=== PATIENT | female | born 1955 | race Caucasian/White ===

== ENCOUNTER → 2025-04-25 | Day surgery (SDC) | payer MEDICARE ==
[2025-04-19 11:35] LABS: BASOPHILS % 0.3 % (0.0-1.0); EOSINOPHILS % 1.6 % (0.0-6.0); LYMPHOCYTES % 21.5 % (18.0-39.1); MONOCYTES % 7.6 % (4.4-11.3); NEUTROPHILS % 68.7 % (38.7-80.0); RED CELL DISTRIBUTION WIDTH 14.7 % (11.7-14.4)
[~2025-04-25] MED LIST: COREG3.125 MG PO; DEXAMETHASONE SOD PHOS INJ 4 MG/ML SDV ONE; EPHEDRINE SULFATE INJ 50 MG/ML VIAL ONE; FAMOTIDINE 20 MG/2 ML VIAL IV ONE; FENTANYL CITRATE/PF 100MCG/2 ML INJ ONE; GABAPENTIN100 MG PO; LACTATED RINGER'S 1,000 ML ONE; LIDOCAINE HCL 2% LOCAL INJ 5 ML SDV VIAL INJ ONE; NIFEDIPINE ER30 M1 PO; ONDANSETRON HCL INJ 2MG/ML 2ML 2 MG/ML VIAL ONE; ONDANSETRON ODT8 MG PO; PHENERGAN25 MG/1 ML PO; PROPOFOL IV EMULSION 10 MG/ML 20 ML VIAL ONE; SEVOFLURANE INHAL SOLN 250 ML PEN BTL ONE; SYNTHROID88 MCG PO; TRAZODONE HCL50 MG PO; ULTRAM 50MG50 MG PO
[2025-04-25 08:31] LABS: INR 0.87
[2025-04-25 08:38] LABS: EST GLOMERULAR FILTRATION RATE 49.0 ML/MIN (>=60)
[2025-04-25 11:10] VITALS: BP 141/82; PULSE 66; RESP 18; O2SAT 99
== END | disposition home or self-care (01) ==
LOC: OR 06:09
PROVIDERS: ATTEND Plastic Surgery
DX: L72.3 Sebaceous cyst (principal); I10 Essential (primary) hypertension; I71.40 Abdominal aortic aneurysm, without rupture, unspecified; E78.5 Hyperlipidemia, unspecified; E03.9 Hypothyroidism, unspecified; K44.9 Diaphragmatic hernia without obstruction or gangrene; K21.9 Gastro-esophageal reflux disease without esophagitis; N39.0 Urinary tract infection, site not specified; M54.2 Cervicalgia; M54.9 Dorsalgia, unspecified; F41.9 Anxiety disorder, unspecified; Z01.810 Encounter for preprocedural cardiovascular examination; Z01.812 Encounter for preprocedural laboratory examination; Z01.818 Encounter for other preprocedural examination; Z79.899 Other long term (current) drug therapy
CPT/HCPCS: 11443; 36415 ×2; 71046; 80048; 85025; 85610; 85730; 93005; J0690; J1100; J1308; J2003; J2405; J2704; J3010; J7121